=== PATIENT | female | born 1970 | race Caucasian/White ===

== ENCOUNTER 2017-02-14 11:54 | Day surgery (SDC) | payer OTHER ==
[2017-02-14] MEDS ORDERED: POLYMYXIN/BACITRACIN 1L IRRIG (13:35)
[2017-02-14] MEDS ORDERED: BACITRACIN/POLYMYXIN 28.35 GM OINT TOP (13:35)
[2017-02-14] MEDS ORDERED: FENTAnyl 50 MCG/ML VIAL (13:44)
[2017-02-14] MEDS ORDERED: ROPIVACAINE 0.5 % 30 ML VIAL ×2 (13:44→15:40)
[2017-02-14] MEDS ORDERED: MIDAZOLAM 1 MG/ML 2 ML INJ (13:44)
[2017-02-14] MEDS ORDERED: OXYCODONE/ACETAMINOPHEN (5/325) TAB PO ×3 (14:00→17:30)
[2017-02-14] MEDS ORDERED: morphine 2 MG INJ IV (14:00)
[2017-02-14] MEDS ORDERED: PROPOFOL 20 ML (14:37)
[2017-02-14] MEDS ORDERED: ROCURONIUM 50 MG INJ (14:37)
[2017-02-14] MEDS ORDERED: LIDOCAINE 2% (SDV) 5 ML INJ (14:37)
[2017-02-14] MEDS ORDERED: SUCCINYLCHOLINE CHLORIDE 100 MG/5 ML SYG IV (14:37)
[2017-02-14] MEDS ORDERED: FAMOTIDINE 20 MG INJ (14:38)
[2017-02-14] MEDS ORDERED: DEXAMETHASONE 4 MG/ML 1 ML INJ (14:38)
[2017-02-14] MEDS ORDERED: HYDROmorphONE 2 MG/ML SYG (14:38)
[2017-02-14] MEDS ORDERED: ONDANSETRON 4 MG INJ ×2 (14:38→17:15)
[2017-02-14] MEDS: POLYMYXIN/BACITRACIN 1L IRRIG IRR (15:07)
[2017-02-14] MEDS: ROPIVACAINE 0.5 % 30 ML VIAL INJ (15:08)
[2017-02-14] MEDS: BACITRACIN/POLYMYXIN 0.9 GM OINT TOP (15:09)
[2017-02-14] MEDS ORDERED: SUGAMMADEX SODIUM 200 MG/2 ML VIAL IV ×2 (16:27→16:33)
[2017-02-14] MEDS ORDERED: HYDROmorphONE (0.2 MG/ML) 10ML SYG IV ×3 (17:12→17:30)
[2017-02-14] MEDS: HYDROmorphONE (0.2 MG/ML) 10ML SYG IV (17:23)
[2017-02-14] MEDS: ONDANSETRON 4 MG INJ IV ×2 (17:23→18:14)
[2017-02-14] MEDS ORDERED: FENTAnyl 50 MCG/ML VIAL IV ×3 (17:30)
[2017-02-14] MEDS ORDERED: LABETALOL HCL 20MG INJ IV (17:30)
[2017-02-14] MEDS ORDERED: hydrALAzine 20 MG INJ IV (17:30)
[2017-02-14] MEDS ORDERED: DIPHENHYDRAMINE 50 MG INJ IV (17:30)
[2017-02-14] MEDS ORDERED: MEPERIDINE 25 MG INJ IV (17:30)
[2017-02-14] MEDS: PROCHLORPERAZINE 10 MG INJ IV (20:11)
== END 2017-02-14 21:00 | disposition home or self-care (01) ==
LOC: SDS 11:54
DX: S82.832A Other fracture of upper and lower end of left fibula, initial encounter for closed fracture (principal); X58.XXXA Exposure to other specified factors, initial encounter; M94.262 Chondromalacia, left knee
CPT/HCPCS: 27792; 73610; 82306; 84703